=== PATIENT | male | born 1995 | race Caucasian/White ===

== ENCOUNTER 2018-08-02 13:37 | Emergency (ER) | payer OTHER, SELFPAY ==
[2018-08-02 13:37] VITALS: BP 128/86; PULSE 93; RESP 18; TEMP 36.3; O2SAT 100; BMI 22.8
[2018-08-02] MEDS: Ketorolac 30 MG/ML Syringe IV (14:06)
[2018-08-02] MEDS: 0.9% Normal Saline 1,000 ML 1000 ML IV ×2 (14:06→14:40)
[2018-08-02] MEDS: Ondansetron 4 MG/2 ML Vial IV (14:06)
--- NOTE | 2018-08-02 15:18 | ED.VISSUMM ---
- ER Visit Summary Date of Service: 08/02/18 Chief Complaint: Vomiting and diarrhea History of Present Illness: The patient is a [address] Satinder Rodriguez. He reports that 3:00 this morning he began having vomiting and diarrhea. He has had one episode of diarrhea. He is vomited approximately 10 times. No blood in his stools or black tarry stools. No blood in his emesis. Reports he has cramping diffuse abdominal pain 8 out of 10 severity. Is worsened by nothing relieved by nothing. Patient denies sick contacts. Has not been camping out of the country. No possible bad food exposure. Does drink well water. However, others at home due as well and they are not ill. He is on amoxicillin approximately 2 weeks ago for a sinus infection. Physical Examination: Vitals: Stable. Afebrile. General: Well-nourished and well-developed. Head: Normocephalic atraumatic. Neck: Supple, no lymphadenopathy. No JVD. Nontender. Cardiovascular: Regular rate and rhythm. No murmurs. Respiratory: No respiratory distress. Clear to auscultation bilaterally. Abdominal: Soft, nontender, nondistended, normal bowel sounds. No guarding, rebound, or peritoneal signs. Back: Nontender. Extremities: Nontender, no edema. Skin: Normal color, no rash. Neurologic: Alert and oriented ?3. Cranial nerves II through XII are intact. Normal strength and sensation. Psych: Normal affect. Emergency Department Course and Treatment: Patient had an IV placed. He was given 2 L normal saline. He was given Zofran and Toradol IV. He is resting comfortably. He said no vomiting or diarrhea while here. Treatment Plan: Patient will be discharged with Zofran. Instructed follow-up Dr. Satinder Rodriguez in 1-2 days if not improving. Return to the emergency department for any worsening symptoms. Disposition: To home in improved and stable condition. Impression: 1. Vomiting/diarrhea. This note was generated with [employer] dictation software. It may contain incorrect words, spelling, and punctuation that were not noted in review of the chart prior to signing ED Disposition - Plan for ED Patient: Instructions: ED Vomiting Diarrhea Nonspecific Ad Prescriptions: Ondansetron [Zofran Odt] 4 mg PO Q8H PRN PRN #10 tablet PRN Reason: Nausea Referrals: Satinder Rodriguez MD [Primary Care Provider] - 1-2 Days if not improving
[2018-08-02 15:36] VITALS: BP 131/64; PULSE 89; RESP 16; O2SAT 99
== END 2018-08-02 15:38 | disposition home or self-care (01) ==
LOC: ED 13:59
PROVIDERS: Emergency Provider Emergency Medicine; Family Provider Family Medicine; PCP Family Medicine
DX: R19.7 Diarrhea, unspecified (principal); R11.2 Nausea with vomiting, unspecified; R10.9 Unspecified abdominal pain
CPT/HCPCS: 96361; 96374; 96375; 99283; J7030; A4216; J2405